=== PATIENT | female | born 1995 | race Caucasian/White ===

== ENCOUNTER 2022-05-12 09:49 | Outpatient (CLI) | payer MEDICAID ==
[2022-05-12 10:02] VITALS: BP 115/66
--- NOTE | 2022-05-12 11:18 | PROVIDER PROGRESS NOTE ---
- HPI Chief Complaint: Labor Check Current : Vital Signs Temperature 98.8 F 05/12/22 10:01 Heart Rate 85 05/12/22 10:01 Respiratory Rate 16 05/12/22 10:01 Blood Pressure 115/66 05/12/22 10:01 Temperature 98.8 F 05/12/22 10:18 Heart Rate 85 05/12/22 10:01 Respiratory Rate 16 05/12/22 10:01 Blood Pressure 115/66 05/12/22 10:01 O2 Saturation - Exam Patient is a 26-year-old -0-3-1 at 19 weeks 6 days gestation by early ultrasound. She just flew back from [place] and [place] to [place]. She has not established care. She does have some abdominal pain that felt like a "rubber band snapped" with midline and right lower quadrant sharp pain. She says this is a line in the inguinal distribution. She says she has no frequent burning with urination, but occasionally wakes up at night with a burning sensation. Is having some vaginal discharge. Was recently treated for mycoplasma. Also has had several days of decreased movement. Past medical history PTSD Past surgical history No prior abdominal surgeries. Family history Noncontributory Social history Denies tobacco, alcohol, drugs Physical Exam Constitutional: alert, no acute distress, well hydrated, well developed, well nourished, appropriate dress. Skin: normal turgor, normal color. Head: atraumatic, normocephalic. Cardiovascular: RRR. Respiratory: no respiratory distress. Abdomen: nondistended, nontender. Spine: normal mobility. Neurologic: normal, sensation intact, motor intact. Psych: affect and mood appropriate, normal interaction, good eye contact. Vulva: Normal in appearance, no lesions or masses. Urethra: no masses, non-tender, no discharge. Bladder: No masses, non-tender, non-distended. Vagina: Rugated, physiologic discharge, no lesions, no masses, adequate pelvic support. Cervix: No motion tenderness, no lesions. Uterus: Mobile, non-tender, adequate support. Adnexa: No masses, mobile, nontender. 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 Assessment and plan 26-year-old -0-3-1 gestation at 19 weeks 6 days gestation by early ultrasound presenting with abdominal cramping and decreased movement. 1. 19 weeks gestation -We will establish with [facility] for visits. We will try to get records from previous provider. 2. Decreased movement -Educated on expectations of movement at this point in . heart tones normal today 3. Bacterial vaginosis -Positive on application today. We will treat with metronidazole. Prescription sent to pharmacy for patient. -GC/CT Negative 4. Yeast vaginitis -Will treat with OTC Monistat 5. Dysuria -UA unremarkable
[2022-05-12 11:19] LABS: BILIRUBIN,URINE NEGATIVE (NEGATIVE); GLUCOSE, URINE (UA) NEGATIVE (NEGATIVE); KETONES,URINE (UA) NEGATIVE (NEGATIVE); LEUKOCYTE ESTERASE, URINE NEGATIVE (NEGATIVE); NITRITE,URINE NEGATIVE (NEGATIVE); OCCULT BLOOD,URINE NEGATIVE (NEGATIVE); PROTEIN,URINE NEGATIVE (NEGATIVE); UROBILINOGEN,URINE 0.2 (NORMAL) E.U./dL (NORMAL)
[2022-05-12 11:23] LABS: CLARITY,URINE CLEAR (CLEAR)
[2022-05-12 11:48] LABS: BACTERIA,URINE Few /HPF (None Seen); RBC,URINE 0-5 /HPF (0-5); SQUAMOUS EPITHELIAL CELL,UR RARE Squamous (<= Few); WBC,URINE 0-3 /HPF (0-5)
[2022-05-12 15:19] LABS: BACTERIAL VAGINOSIS DNA POSITIVE (NEGATIVE); CANDIDA GLABRATA DNA NEGATIVE (NEGATIVE); CANDIDA GROUP DNA POSITIVE (NEGATIVE); CANDIDA KRUSEI DNA NEGATIVE (NEGATIVE); TRICHOMONAS VAGINALIS DNA NEGATIVE (NEGATIVE)
[2022-05-13 00:29] LABS: CHLAMYDIA TRACHOMATIS DNA NEGATIVE (NEGATIVE); NEISSERIA GONORRHOEAE DNA NEGATIVE (NEGATIVE)
== END 2022-05-12 10:55 | disposition home or self-care (01) ==
LOC: WFO 09:49 → FBP 10:02 → WFO 10:55
PROVIDERS: ATTEND Obstetrics & Gynecology
DX: O36.8120 Decreased fetal movements, second trimester, not applicable or unspecified (principal); O23.592 Infection of other part of genital tract in pregnancy, second trimester; N76.0 Acute vaginitis; O98.812 Other maternal infectious and parasitic diseases complicating pregnancy, second trimester; B37.3 Candidiasis of vulva and vagina; O99.891 Other specified diseases and conditions complicating pregnancy; R10.31 Right lower quadrant pain; R30.0 Dysuria; Z3A.19 19 weeks gestation of pregnancy
CPT/HCPCS: 81001; 81514; 87086; 87491; 87591; 87661; 99212; 99213

== ENCOUNTER 2022-05-26 06:46 | Outpatient (CLI) | payer MEDICAID ==
--- NOTE | 2022-05-26 10:37 | Ultrasound Report ---
PROCEDURE: OB Detailed Eval INDICATIONS: SUPERVISION OF OUTSIDE/PRIOR DATING DATA: Last menstrual period (LMP): Unknown. First dating scan (date and location): 03/17/2022. Outside imaging, images are not available Estimated date of delivery (RACIEL) from first dating scan: September 30, 2022 TECHNIQUE: Real-time scanning was performed of the fetus, with image documentation and biometric measurements. COMPARISON: None. FINDINGS: General: A single living intrauterine gestation is present. Presentation: Variable Placenta: Placental position is posterior fundal, without previa. Amniotic fluid index: 12.2 cm, normal for gestational age. heart rate: 145 beats per minute. Maternal cervical canal: 4.2 cm long; normal length is 2.5 cm or more. biometrics: Biparietal diameter: 4.9 cm Head circumference: 18.2 cm Abdominal circumference: 16.9 cm Femur length: 3.6 cm Estimated gestational age from initial scan: 21 weeks and 6 days Composite gestational age from present scan: 21 weeks and 2 days Estimated weight and percentile: 435 g, at the 30th percentile Maternal adnexal structures within normal limits. Anatomic survey: Neuro: Ventricles are normal at less than 10 mm. Cisterna magna is normal at 3-11 mm. Cerebellum i s normal in size and morphology. Nuchal skin fold: Normal at less than 6 mm between 14 and 20 weeks gestational age. Face: Nose and lips, facial profile are normal. Spine: No evidence for spina bifida. Heart: 4-chambered heart is present, with normal ventricular outflow tracts. Diaphragm: Diaphragm is intact. Stomach: Left-sided stomach is present. Kidneys: No hydronephrosis. Normal is less than 5 mm in 2nd trimester, less than 7 mm in 3rd trimester. Cord: 3 vessel cord has orthotopic insertion. Bladder: Normal in size. Extremities: All 4 extremities are visualized. IMPRESSION: Intrauterine gestation with outside reported gestational age of 21 weeks and 6 days based on ultrasou nd, for which images are not available for review. Today's biometry measurement is 20 weeks and 2 days, which is concordant. EFW is at the 30th percentile. Routine anatomic survey is normal and complete. Reviewed by: Shan Mcdaniel MD on 05/26/2022 10:36 AM PDT Approved by: Shan Mcdaniel MD on 05/26/2022 10:36 AM PDT Station ID: [id number]
== END 2022-05-26 06:47 | disposition home or self-care (01) ==
LOC: DI 06:46
PROVIDERS: ATTEND Nurse Practitioner
DX: Z34.82 Encounter for supervision of other normal pregnancy, second trimester (principal); Z36.89 Encounter for other specified antenatal screening

== ENCOUNTER 2022-07-04 09:06 | Outpatient (CLI) | payer MEDICAID ==
[2022-07-04 09:50] LABS: GTT GLUCOSE,FASTING 93 mg/dL (70-100)
== END 2022-07-04 09:07 | disposition home or self-care (01) ==
LOC: LAB 09:06
PROVIDERS: ATTEND Obstetrics & Gynecology
DX: O99.810 Abnormal glucose complicating pregnancy (principal)
CPT/HCPCS: 36415; 82951; 82952

== ENCOUNTER 2022-08-05 07:02 | Outpatient (CLI) | payer MEDICAID ==
--- NOTE | 2022-08-05 15:47 | Ultrasound Report ---
PROCEDURE: OB F/U or Repeat INDICATIONS: SUPERVISION OF OUTSIDE/PRIOR DATING DATA: Last menstrual period (LMP): Unknown. LMP-based estimated date of delivery (RACIEL): Unknown. First dating scan (date and location): 03/17/2022. Estimated date of delivery (RACIEL) from first dating scan: 09/30/22. The below data below was generated using the ultrasound RACIEL of 09/30/22 TECHNIQUE: Real-time scanning was performed of the fetus, with image documentation and biometric measurements. COMPARISON: OB ultrasound 06/13/2022 FINDINGS: General: A single living intrauterine gestation is present. Presentation: Vertex Placenta: Placental position is posterior, without previa. Amniotic fluid index: 18.7 cm, within normal limits for gestational age. Largest pocket measures 6. 2 cm heart rate: 132 beats per minute. Maternal cervical canal: 0.6 cm long; normal length is 2.5 cm or more. biometrics: Biparietal diameter: 8.1 cm 32 weeks 3 Head circumference: 29.4 cm 32 weeks 3 days Abdominal circumference: 20.3 cm 32 weeks 3 days Femur length: 6.4 cm 33 weeks 0 days Estimated gestational age from initial scan: 32 weeks 0 days Composite gestational age from present scan: 32 weeks 4 days Estimated weight and percentile: 2004 g, 58th percentile Measurement variability in biometric dating: +/- 10 days from 12-20 weeks gestation, +/- 2 weeks from 20-30 weeks gestation, +/- 3 weeks at 30 weeks gestation or more. Other: Persistent right ovarian cyst although decreased in size. IMPRESSION: Single live intrauterine with ultrasound gestational age today of 32 weeks 4 days. NEERU is within normal limits. Appropriate interval growth is noted. Reviewed by: Meg Penn MD on 08/05/2022 3:46 PM PDT Approved by: Meg Penn MD on 08/05/2022 3:46 PM PDT Station ID: [id number]
== END 2022-08-05 07:03 | disposition home or self-care (01) ==
LOC: DI 07:02
PROVIDERS: ATTEND Obstetrics & Gynecology
DX: O09.893 Supervision of other high risk pregnancies, third trimester (principal); Z3A.32 32 weeks gestation of pregnancy; Z79.899 Other long term (current) drug therapy

== ENCOUNTER 2022-08-22 12:36 | Emergency (ER) | payer MEDICAID ==
--- NOTE | 2022-08-22 13:12 | ED Physician Documentation ---
PD HPI CHEST PAIN - Stated complaint Stated Complaint: CHEST PX - Chief complaint Chief Complaint: Cardiac - History obtained from History obtained from: Patient - Additional information Additional information: at 34 weeks gestation. Has hx of tachycardias no propranolol for same. Today at 1115am was standing and got presyncopal with chest pressure and dyspnea. She noted her heart rate to be higher than usual at 172, but she says that this is not the highest its been with her tachycardias which have been incompletely worked up. She had taken her heart rate with her apple watch. She has not had an echo or a Holter monitor. She denies pedal edema or calf pain. Review of Systems Ten Systems: 10 systems reviewed and negative Constitutional: reports: Fatigue Cardiac: reports: Chest pain / pressure Respiratory: reports: Dyspnea PD PAST MEDICAL HISTORY - Past Medical History Cardiovascular: None Respiratory: None Endocrine/Autoimmune: None GI: None - Past Surgical History Past Surgical History: No - Present Medications Home Medications: Ambulatory Orders Medication Instructions Recorded Confirmed metroNIDAZOLE [Flagyl] 500 mg PO BID 7 Days #14 tablet 05/13/22 08/22/22 Propranolol [Inderal] 10 mg PO BID 08/22/22 08/22/22 Sertraline HCl 100 mg PO DAILY 08/22/22 08/22/22 - Allergies Allergies/Adverse Reactions: Allergies Allergy/AdvReac Type Severity Reaction Status Date / Time melon Allergy Severe Anaphylaxis Verified 06/14/22 07:11 pineapple Allergy Severe Unknown Verified 06/14/22 07:09 - Social History Does the pt smoke?: No Smoking Status: Never smoker Does the pt drink ETOH?: No Does the pt have substance abuse?: No - Immunizations Immunizations are current?: Yes - POLST Patient has POLST: No PD ED PE NORMAL - Vitals Vital signs reviewed: Yes (Mild resting tachycardia) - General General: Alert and oriented X 3, No acute distress - HEENT HEENT: PERRL, EOMI - Neck Neck: Supple, no meningeal sign, No bony TTP - Cardiac Cardiac: Other (mild tachy, reg, no murmur) - Respiratory Respiratory: No respiratory distress, Clear bilaterally - Abdomen Abdomen: Normal bowel sounds, Soft, Other (gravid) - Back Back: No CVA TTP, No spinal TTP - Derm Derm: Normal color, Warm and dry - Extremities Extremities: No edema, No calf tenderness / cord - Neuro Neuro: Alert and oriented X 3, Normal speech Results - Vitals Vitals: Vital Signs - 24 hr 08/22/22 12:47 Temperature 37.2 C Heart Rate 120 H Respiratory 18 Rate Blood Pressure 118/74 O2 Saturation 100 Oxygen O2 Source Room air - EKG (time done) 1246 Rate: Rate (enter#) (113) Rhythm: Sinus tachycardia [place]: Normal Intervals: Normal [place] QRS: Normal Ischemia: Normal ST segments - Labs Labs: Laboratory Tests 08/22/22 08/22/22 08/22/22 13:16 13:16 13:16 WBC 9.6 RBC 3.82 L Hgb 10.4 L Hct 32.6 L MCV 85.3 MCH 27.2 MCHC 31.9 L RDW 13.2 Plt Count 262 MPV 8.2 Neut # (Auto) 7.1 H Lymph # (Auto) 1.7 [place] # (Auto) 0.6 Eos # (Auto) 0.1 Baso # (Auto) 0.0 Absolute Nucleated RBC 0.00 Nucleated RBC % 0.0 D-Dimer Sodium 136 Potassium 3.8 Chloride 106 Carbon Dioxide 21 Anion Gap 9.0 BUN 9 Creatinine 0.5 Estimated GFR (MDRD) 149 Glucose 94 Calcium 9.0 Total Bilirubin 0.4 AST 19 ALT 16 Alkaline Phosphatase 100 Troponin I High Sens 6.0 Total Protein 6.2 L Albumin 3.0 L Globulin 3.2 Albumin/Globulin Ratio 0.9 L Lipase 31 08/22/22 13:16 WBC RBC Hgb Hct MCV MCH MCHC RDW Plt Count MPV Neut # (Auto) Lymph # (Auto) [place] # (Auto) Eos # (Auto) Baso # (Auto) Absolute Nucleated RBC Nucleated RBC % D-Dimer 278.7 H Sodium Potassium Chloride Carbon Dioxide Anion Gap BUN Creatinine Estimated GFR (MDRD) Glucose Calcium Total Bilirubin AST ALT Alkaline Phosphatase Troponin I High Sens Total Protein Albumin Globulin Albumin/Globulin Ratio Lipase PD MEDICAL DECISION MAKING - ED course ED course: 27-year-old G6, P1 at 34 weeks gestation presents for presyncope associated with tachycardia and chest pressure and shortness of breath. She has had a longstanding history of tachycardias that are treated in this with propranolol, but she feels like this issue predated this . She was very tachycardic per her apple watch today but that is in range with her usual tachycardias. That said her tachycardia is profound and severe. I wanted to do an echo, noting that this would be a decent screening test for pulmonary embolism but would also evaluate her heart, unfortunately echo was not available today and after discussion of potential downstream testing patient is agreeable to D-dimer screening. Her quantitative D-dimer does flag is elevated, that said it is minimally elevated and given that she is third trimester and 40s generally feel that the reference range for D-dimer is elevated with progression in with normal values from a variety of sources being well above the thousand in the third trimester, therefore I feel that the D-dimer of 278 effectively rules out thromboembolic disease given her third trimester status. I discussed the case by phone with Dr. Anton on-call for [facility] who agrees with work-up and management. Departure - Departure Disposition: 01 Home, Self Care Clinical Impression: Qualifiers: Weeks of gestation: 34 weeks Qualified Code(s): Z3A.34 - 34 weeks gestation of Chest pain Qualifiers: Chest pain type: chest pain on breathing Qualified Code(s): R07.1 - Chest pain on breathing; R07.81 - Pleurodynia Condition: Good Record reviewed to determine appropriate education?: Yes Instructions: ED Chest Pain NonCardiac Comments: Work-up here was relatively normal with no sign of active heart disease. Your D-dimer was normal for your status of . This rules out blood clots. Return for new or worsening symptoms. Follow-up with Dr. Dickey, preferably tomorrow for consideration of echocardiogram and accelerating the iron molder helper.
[2022-08-22 13:26] LABS: BASOPHILS % (AUTO) 0.4 %; EOSINOPHILS # (AUTO) 0.1 10^3/uL (0.0-0.7); EOSINOPHILS % (AUTO) 0.9 %; HCT - HEMATOCRIT 32.6 % (37.0-47.0); HGB - HEMOGLOBIN 10.4 g/dL (12.0-16.0); LYMPHOCYTES # (AUTO) 1.7 10^3/uL (1.5-3.5); LYMPHOCYTES % (AUTO) 17.5 %; MEAN CORPUSCULAR HEMOGLOBIN 27.2 pg (27.0-31.0); MEAN CORPUSCULAR HGB CONC 31.9 g/dL (32.0-36.0); MEAN CORPUSCULAR VOLUME 85.3 fL (81.0-99.0); MEAN PLATELET VOLUME 8.2 fL (7.9-10.8); MONOCYTES # (AUTO) 0.6 10^3/uL (0.0-1.0); MONOCYTES % (AUTO) 6.1 %; NEUTROPHILS # (AUTO) 7.1 10^3/uL (1.5-6.6); NEUTROPHILS % (AUTO) 73.2 %; PLT - PLATELET COUNT 262 10^3/uL (130-450); RED BLOOD COUNT 3.82 10^6/uL (4.20-5.40); RED CELL DISTRIBUTION WIDTH 13.2 % (12.0-15.0); WHITE BLOOD COUNT 9.6 x10^3/uL (4.8-10.8)
[2022-08-22 13:39] LABS: ALBUMIN/GLOBULIN RATIO 0.9 (1.0-2.2); BILIRUBIN,TOTAL 0.4 mg/dL (0.2-1.0); CREATININE 0.5 mg/dL (0.4-1.0); POTASSIUM 3.8 mmol/L (3.5-5.0); TOTAL PROTEIN 6.2 g/dL (6.7-8.2)
[2022-08-22 14:44] VITALS: BP 115/74
--- NOTE | 2022-08-22 18:09 | PROCEDURE REPORT ---
- HPI Diagnosis/Indication for NST: Other Vital Signs Temperature 98.9 F 08/22/22 12:47 Heart Rate 120 H 08/22/22 12:47 Respiratory Rate 18 08/22/22 12:47 Blood Pressure 118/74 08/22/22 12:47 O2 Saturation 100 08/22/22 12:47 Temperature 98.9 F 08/22/22 12:47 Heart Rate 115 H 08/22/22 14:30 Respiratory Rate 19 08/22/22 14:30 Blood Pressure 115/74 08/22/22 14:30 O2 Saturation 100 08/22/22 14:30 If not protocol: Oxygen Flow, liters/minute - NST Procedure EFM: 140s, moderate variability, no decelerations, positive accelerations [place]: occasional contractions Category 1, reactive NST - Results and Plan Findings/Impression: 27yo at 34 weeks evaluated in ED for chest pain. care at . Tachycardia treated with propanolol. - NST performed to evaluate well being - NST reactive - Follow up with patient this week, plan to schedule echo
== END 2022-08-22 14:44 | disposition home or self-care (01) ==
LOC: ED 12:36
DX: O26.893 Other specified pregnancy related conditions, third trimester (principal); R07.9 Chest pain, unspecified; Z3A.34 34 weeks gestation of pregnancy
CPT/HCPCS: 36415; 80053; 83690; 84484; 85025; 85379; 93005; 99283; 99284

== ENCOUNTER 2022-08-24 14:54 | Outpatient (CLI) | payer MEDICAID ==
[2022-08-24 15:47] LABS: THYROID STIMULATING HORMONE 0.69 uIU/mL (0.34-5.60)
== END 2022-08-24 14:55 | disposition home or self-care (01) ==
LOC: LAB 14:54
PROVIDERS: ATTEND Obstetrics & Gynecology
DX: O09.93 Supervision of high risk pregnancy, unspecified, third trimester (principal); O99.891 Other specified diseases and conditions complicating pregnancy; R00.0 Tachycardia, unspecified
CPT/HCPCS: 36415; 84443; 86787

== ENCOUNTER 2022-09-08 08:00 | Outpatient (CLI) | payer MEDICAID ==
[2022-09-08 22:38] LABS: BACTERIAL VAGINOSIS DNA NEGATIVE (NEGATIVE); CANDIDA GLABRATA DNA NEGATIVE (NEGATIVE); CANDIDA GROUP DNA POSITIVE (NEGATIVE); CANDIDA KRUSEI DNA NEGATIVE (NEGATIVE); TRICHOMONAS VAGINALIS DNA NEGATIVE (NEGATIVE)
[2022-09-08 23:46] LABS: CHLAMYDIA TRACHOMATIS DNA NEGATIVE (NEGATIVE); NEISSERIA GONORRHOEAE DNA NEGATIVE (NEGATIVE)
== END 2022-09-08 23:59 | disposition home or self-care (01) ==
LOC: LAB.WC 08:00
PROVIDERS: ATTEND Nurse Practitioner
DX: O99.891 Other specified diseases and conditions complicating pregnancy (principal); N89.8 Other specified noninflammatory disorders of vagina; Z36.85 Encounter for antenatal screening for Streptococcus B
CPT/HCPCS: 81514; 87491; 87591; 87661; 87797

== ENCOUNTER 2022-09-08 13:39 | Outpatient (CLI) | payer MEDICAID ==
[2022-09-08 13:54] VITALS: BP 117/84
[2022-09-08 14:35] LABS: RUPTURE OF MEMBRANES PLUS NEGATIVE (NEGATIVE)
--- NOTE | 2022-09-08 14:37 | PROCEDURE REPORT ---
- HPI Diagnosis/Indication for NST: Other (false labor) Current EDU 09/30/22 Gestation 36 Weeks and 6 Days 5 Para 1 Vital Signs Temperature 98.2 F 09/08/22 13:48 Heart Rate 88 09/08/22 13:48 Respiratory Rate 16 09/08/22 13:48 Blood Pressure 117/84 H 09/08/22 13:48 Temperature 98.2 F 09/08/22 13:48 Heart Rate 88 09/08/22 13:48 Respiratory Rate 16 09/08/22 13:48 Blood Pressure 117/84 H 09/08/22 13:48 O2 Saturation If not protocol: Oxygen Flow, liters/minute - NST Procedure NST Procedure Start Date 09/08/22 Start Time 13:46 Stop Time 14:15 Vibroacoustic Stimulation Used No Patient States Movement No: decreased Baseline: 140 Beat to beat varability: Moderate No deceleration Present acceleration Interpretation: Reactive Plan: No changes Nitrogen test is negative AmniSure: negative Follow-up at the office next week - Results and Plan Findings/Impression: reactive NST Plan: Follow up 1 week
--- NOTE | 2022-09-08 14:40 | PROVIDER PROGRESS NOTE ---
Subjective - Prog Note Date Prog Note Date: 09/08/22 Prog Note Time: 14:38 - Subjective Subjective: Nonstress test was reactive. She was a sent from the office because her cervix was 3 cm dilated and there was a questionable ruptured membrane. AmniSure was negative nitrazine test was negative and monitoring did not show any contractions and she was reassured and she is going to be sent home today and she will be followed at the office next week and she understood Objective - Vital Signs/Intake & Output Vital Signs: Vital Signs x48h Temp Pulse Resp BP 09/08/22 13:48 98.2 F 88 16 117/84 H - Lab Results Other Labs: Lab Results x24hrs 09/08/22 Range/Units 13:55 Membranes Rupture NEGATIVE (NEGATIVE)
--- NOTE | 2022-09-08 17:55 | PROVIDER PROGRESS NOTE ---
Subjective - Prog Note Date Prog Note Date: 09/08/22 Prog Note Time: 17:54 - Subjective Pt reports feeling: Improved (Afebrile, Cx: 10100/+1 vtx P: will let her to push) Objective - Vital Signs/Intake & Output Vital Signs: Vital Signs x48h Temp Pulse Resp BP 09/08/22 13:48 98.2 F 88 16 117/84 H - Lab Results Other Labs: Lab Results x24hrs 09/08/22 Range/Units 13:55 Membranes Rupture NEGATIVE (NEGATIVE)
== END 2022-09-08 14:45 | disposition home or self-care (01) ==
LOC: WFO 13:39 → FBP 13:40 → WFO 14:45
PROVIDERS: ATTEND Obstetrics & Gynecology
DX: O47.1 False labor at or after 37 completed weeks of gestation (principal); Z3A.36 36 weeks gestation of pregnancy; O99.891 Other specified diseases and conditions complicating pregnancy; N89.8 Other specified noninflammatory disorders of vagina; Z36.85 Encounter for antenatal screening for Streptococcus B
CPT/HCPCS: 59025; 81514; 84112; 87491; 87591; 87661; 87797; 99213

== ENCOUNTER 2022-09-09 12:46 | Outpatient (CLI) | payer MEDICAID | END 2022-09-09 12:47 | disposition home or self-care (01) | LOC: MAC.MOP 12:46 | PROVIDERS: ATTEND Obstetrics & Gynecology | DX: O09.93 Supervision of high risk pregnancy, unspecified, third trimester (principal); R00.0 Tachycardia, unspecified | CPT/HCPCS: 93242 ==

== ENCOUNTER 2022-09-26 07:03 | Inpatient (IN) | payer MEDICAID ==
[2022-09-26] MEDS ORDERED: CARBOPROST TROMETHAMINE 250 MCG/ML AMP IM PRN (08:36)
[2022-09-26] MEDS ORDERED: TRANEXAMIC ACID IN NACL 1,000 MG/100 ML BAG IV PRN (08:36)
[2022-09-26] MEDS ORDERED: lidocaine 1% 20 ML MDV ID PRN (08:36)
[2022-09-26] MEDS ORDERED: miSOPROStoL 200 MCG TABLET PR PRN (08:36)
[2022-09-26] MEDS ORDERED: OXYTOCIN 10 UNIT/ML VIAL IM PRN (08:36)
[2022-09-26] MEDS ORDERED: SODIUM CHLORIDE FLUSH 0.9% 10 ML SYRINGE IVP PRN (08:36)
[2022-09-26] MEDS ORDERED: fentaNYL 100 MCG/2 ML VIAL IVP PRN (08:36)
[2022-09-26] MEDS ORDERED: TERBUTALINE 1 MG/ML VIAL SUBQ PRN (08:36)
[2022-09-26] MEDS ORDERED: METHYLERGONOVINE 0.2 MG/ML VIAL IM PRN (08:36)
[2022-09-26] MEDS ORDERED: miSOPROStoL 200 MCG TABLET BC PRN (08:36)
[2022-09-26] MEDS ORDERED: OXYTOCIN/SODIUM CHLORIDE 500 ML IV PRN (08:36)
[2022-09-26 08:53] LABS: BASOPHILS % (AUTO) 0.4 %; EOSINOPHILS # (AUTO) 0.1 10^3/uL (0.0-0.7); EOSINOPHILS % (AUTO) 1.1 %; HGB - HEMOGLOBIN 9.7 g/dL (12.0-16.0); LYMPHOCYTES # (AUTO) 1.8 10^3/uL (1.5-3.5); LYMPHOCYTES % (AUTO) 23.2 %; MEAN CORPUSCULAR HEMOGLOBIN 24.7 pg (27.0-31.0); MEAN CORPUSCULAR HGB CONC 31.3 g/dL (32.0-36.0); MEAN CORPUSCULAR VOLUME 79.1 fL (81.0-99.0); MEAN PLATELET VOLUME 8.9 fL (7.9-10.8); MONOCYTES # (AUTO) 0.5 10^3/uL (0.0-1.0); MONOCYTES % (AUTO) 6.9 %; NEUTROPHILS # (AUTO) 5.2 10^3/uL (1.5-6.6); NEUTROPHILS % (AUTO) 66.4 %; PLT - PLATELET COUNT 293 10^3/uL (130-450); RED BLOOD COUNT 3.92 10^6/uL (4.20-5.40); RED CELL DISTRIBUTION WIDTH 14.7 % (12.0-15.0); WHITE BLOOD COUNT 7.8 x10^3/uL (4.8-10.8)
[2022-09-26] MEDS ORDERED: SODIUM CHLORIDE FLUSH 0.9% 10 ML SYRINGE IVP SCH (09:00)
[2022-09-26] MEDS ORDERED: LACTATED RINGERS 1,000 ML ONE (09:00)
[2022-09-26] MEDS ORDERED: OXYTOCIN/SODIUM CHLORIDE 500 ML IV SCH (09:00)
[2022-09-26] MEDS: LACTATED RINGERS 1,000 ML IV SCH ×2 (09:03→14:31)
--- NOTE | 2022-09-26 09:05 | HISTORY & PHYSICAL EXAMINATION ---
Admit History - Visit Reason Visit Reason: Other (Scheduled IOL, GDMA1) - : 5 Parity: 1 : 3 SAb Care: positive: [facility] Complications This : positive: Treated for GBS/UTI, Gestational diabetes Smoking Status: Never smoker - Mother's Labs Mother's Blood Type: positive: A Mother's RH: positive: Positive GBS: positive: Group B Step Negative Rubella Status: positive: Immune - Other Maternal History Other Maternal History: Med: Anxiety/Depression, Tachycardia Surg: Rhinoplasty 2020 Social: Single, father of baby in room with patient, denies DORY Fam: Asthma, DM Meds/Allgy - Home Medications Home Medications: Ambulatory Orders Medication Instructions Recorded Confirmed Propranolol [Inderal] 10 mg PO BID 08/22/22 09/09/22 Sertraline HCl 100 mg PO DAILY 08/22/22 09/09/22 - Allergies Allergies/Adverse Reactions: Allergies Allergy/AdvReac Type Severity Reaction Status Date / Time melon Allergy Severe Anaphylaxis Verified 09/09/22 14:05 pineapple Allergy Severe Unknown Verified 09/09/22 14:05 Review of Systems - All Other Systems All Other Systems: reports: Reviewed and negative Physical - Abdominal Exam Vital Signs: Temp Pulse Resp BP Pulse Ox O2 Flow Rate 98.1 F 09/26/22 08:18 Contraction Frequency (min/apart): 0 Contraction Intensity: positive: Mild Uterine Resting Tone: positive: Soft - Monitoring Heart Rate Baseline: 140 Strip Review: positive: Category I - Presentation Presentation: positive: Vertex (placenta posterior EFW 3200g) - Vaginal Exam Membranes: positive: Membranes intact Dilation (in cm): 3 - Speculum Exam Speculum Exam Performed: positive: No Plan for Labor - Plan For Labor I expect patient to be DC'd or transferred within 96 hours.: Yes Plan for Labor: 27yo at 39.3w by 13w US presenting for GDMA1 - Admit - CBC, T&S - SW consult placed for social situation - Start Pitocin, anticipate - Cat 1, continue to monitor
[2022-09-26] MEDS: SERTRALINE 50 MG TABLET PO SCH (11:59)
[2022-09-26] MEDS ORDERED: ROPIVACAINE 0.2% 200 MG/100 ML BAG EP ONE (13:43)
[2022-09-26] MEDS ORDERED: NALBUPHINE 10 MG/ML AMP IVP PRN (14:33)
[2022-09-26] MEDS ORDERED: diphenhydrAMINE INJ 50 MG/ML VIAL IVP PRN (14:33)
[2022-09-26] MEDS ORDERED: ONDANSETRON 4 MG/2 ML VIAL IVP PRN (14:33)
[2022-09-26] MEDS ORDERED: ePHEDrine 50 MG/ML VIAL IVP PRN (14:33)
[2022-09-26] MEDS ORDERED: NALOXONE 0.4 MG/ML VIAL IVP PRN (14:33)
[2022-09-26] MEDS ORDERED: ROPIVACAINE 0.2% 200 MG/100 ML BAG EP PRN (14:33)
--- NOTE | 2022-09-26 14:36 | ANESTHESIA ---
Pre-Anesthesia VS, & Labs - Diagnosis labor pain - Procedure labor epidural Vital Signs: Temp Pulse Resp BP Pulse Ox O2 Flow Rate 36.7 C 09/26/22 08:18 Height: 5 ft 5 in Weight (kg): 69.581 kg Body Mass Index: 25.5 BMI Classification: Overweight - NPO Other (ate lunch) - Is Patient ?: Yes - Lab Results Current Lab Results: Laboratory Tests 09/26/22 09:28: Blood Type Recheck A POSITIVE 09/26/22 07:30: WBC 7.8, RBC 3.92 L, Hgb 9.7 L, Hct 31.0 L, MCV 79.1 L, MCH 24.7 L, MCHC 31.3 L, RDW 14.7, Plt Count 293, MPV 8.9, Neut # (Auto) 5.2, Lymph # (Auto) 1.8, [place] # (Auto) 0.5, Eos # (Auto) 0.1, Baso # (Auto) 0.0, Absolute Nucleated RBC 0.00, Nucleated RBC % 0.0 09/26/22 07:30: Blood Type A POSITIVE, Antibody Screen NEGATIVE Fish Bones: 09/26/22 07:30 Home Medications and Allergies Active Medications Carboprost Tromethamine (Carboprost Tromethamine 250 Mcg/Ml Amp) 250 mcg IM .ONCE PRN PRN Reason: Hemorrhage Fentanyl (Fentanyl 100 Mcg/2 Ml Vial) 50 mcg IVP Q1H PRN PRN Reason: Severe Pain (score 7-10) Oxytocin/Sodium Chloride (Pitocin/Sodium Chloride) 500 mls @ 999 mls/hr IV PRN PRN; Protocol PRN Reason: POST- HEMORR PREVENTION Tranexamic Acid (Tranexamic 1,000 Mg/100ml-Nacl) 1,000 mg in 100 mls @ 600 mls/hr IV Q30M PRN PRN Reason: EBL >1200mL and within 3hr Oxytocin/Sodium Chloride (Pitocin/Sodium Chloride) 500 mls @ 1 mls/hr IV TITR IVORY; Protocol Last Admin: 09/26/22 09:04 Dose: 2 milliunit/min, 2 mls/hr Lactated Ringer's (Lr) 1,000 mls @ 125 mls/hr IV .Q8H IVORY Last Admin: 09/26/22 09:03 Dose: 125 mls/hr Lidocaine HCl (Lidocaine 1% 20 Ml Mdv) 20 ml ID .ONCE PRN PRN Reason: PERINEAL REPAIR Stop: 09/29/22 08:36 Methylergonovine Maleate (Methylergonovine 0.2 Mg/Ml Vial) 0.2 mg IM .ONCE PRN PRN Reason: Hemorrhage Misoprostol (Misoprostol 200 Mcg Tablet) 600 mcg BC .ONCE PRN PRN Reason: Hemorrhage Misoprostol (Misoprostol 200 Mcg Tablet) 800 mcg WA .ONCE PRN PRN Reason: Hemorrhage Oxytocin (Oxytocin 10 Unit/Ml Vial) 10 unit IM .ONCE PRN PRN Reason: Step One if no IV access. Sertraline HCl (Sertraline 50 Mg Tablet) 50 mg PO DAILY IVORY Last Admin: 09/26/22 11:59 Dose: 50 mg Sodium Chloride (Sodium Chloride Flush 0.9% 10 Ml Syringe) 10 ml IVP PRN PRN PRN Reason: NEEDED PER PROVIDER ORDERS Last Admin: 09/26/22 07:30 Dose: 10 ml Sodium Chloride (Sodium Chloride Flush 0.9% 10 Ml Syringe) 10 ml IVP Q8H IVORY Terbutaline Sulfate (Terbutaline 1 Mg/Ml Vial) 0.25 mg SUBQ .ONCE PRN PRN Reason: Tachystole Propranolol [Inderal] 10 mg PO BID 08/22/22 Sertraline HCl 100 mg PO DAILY 08/22/22 Allergies/Adverse Reactions: Allergies Allergy/AdvReac Type Severity Reaction Status Date / Time melon Allergy Severe Anaphylaxis Verified 09/09/22 14:05 pineapple Allergy Severe Unknown Verified 09/09/22 14:05 Anes History & Medical History - Anesthetic History Anesthesia Complications: reports: No previous complications Family history of Anesthesia Complications: Denies Family history of Malignant Hyperthermia: Denies - Medical History Cardiovascular: reports: None, Other (intermittent tachycardia) Pulmonary: reports: None Gastrointestinal: reports: None Endocrine/Autoimmune: reports: None Smoking Status: Never smoker - Obstetrical History : 5 Parity: 1 Complications: reports: Treated for GBS/UTI, Gestational diabetes Exam General: Alert, Oriented x3, Cooperative Dental: WNL Mouth Openin Fingerbreadth Neck Mobility: Normal Mallampati classification: I Respiratory: Lungs clear Cardiovascular: Regular rate Plan Anesthesia Type: Epidural Consent for Procedure(s) Verified and Reviewed: Yes Code Status: Attempt Resuscitation ASA classification: 2-Mild systemic disease Is this case an emergency?: No
--- NOTE | 2022-09-26 14:54 | PROVIDER PROGRESS NOTE ---
Labor Progress Note - Uterine Monitoring Contraction Frequency (min/apart): 2 Contraction Intensity: positive: Mild to moderate Uterine Resting Tone: positive: Soft - Monitoring Monitor Mode: positive: External ultrasound Heart Rate Baseline: 140 Heart Rate Variability: positive: Moderate (6-25 bmp) Accelerations: positive: Present, 15x15 Decelerations: positive: None Strip Review: positive: Category I - Vaginal Exam Dilation (in cm): 6 Effacement (%): 100 Station: -2 (AROM 1430, copious clear fluid) Cervical Position: Midposition - Labor Progress Note Labor Progress Note/Additional Text: 27yo at 39.3 by 13w US admitted for scheduled IOL for GDMA1 - AROM 1430, clear - Continue Pitocin - Anticipate
[2022-09-26] MEDS ORDERED: PROPRANOLOL 10 MG TABLET PO SCH (17:00)
[2022-09-26] MEDS ORDERED: HYDROCORTISONE 1% CREAM 28 GM TUBE PR PRN (19:00)
[2022-09-26] MEDS ORDERED: WITCH HAZEL/GLYCERIN 1 PAD TOP PRN (19:00)
--- NOTE | 2022-09-26 19:15 | DELIVERY NOTE ---
Delivery Note - Labor Labor: positive: Augmented by oxytocin, Induced by oxytocin - Presentation Presentation: positive: Vertex, NEO - left occiput anterior - Nuchal Cord Nuchal Cord: positive: None - Anesthetic Anesthetic Type: - Amniotic Fluid Description Amniotic Fluid Description: positive: Clear - Episiotomy Type Episiotomy Type: positive: None - Laceration Laceration: positive: None - Delivery Outcome Delivery Outcome: positive: Livebirth - [place] : positive: Placed in direct skin contact with mother, Bulb syringe, Stimulated, Warmed sex: positive: Female - Cord Cord: positive: 3 vessels - Placenta Placenta: positive: Intact, Spontaneous - Estimated Blood Loss Estimated Blood Loss (in cc): 200 - Post Delivery Events Post Delivery Events: positive: Shoulder dystocia (George, suprapubic pressure and posterior arm delivery maneuvers placed) - Delivery Comments (Free Text/Narrative) Delivery Comments (Free Text/Narrative): 10/100/0 and patient feeling pressure. Head delivered. Body not delivered with gentle traction, so manuevers started. Shoulder dystocia encountered. RN assistance in the room. [place], suprapubic pressure and then left posterior arm was delivered. Time from head to body about 150 seconds. After delivery of posterior arm, body delivered atraumatically. Baby vigorous and placed on mother's abdomen. Apgars 8/9. Delayed cord clamping. Fundus firm. Placenta delivered spontaneously and intact, 3vc. Vagina and perineum inspected- no lacerations. Mother, baby and father of baby doing well and bonding at bedside. Bus System Operator at bedside. EBL 200cc.
[2022-09-26] MEDS: ACETAMINOPHEN 500 MG TABLET PO SCH (21:02)
[2022-09-26] MEDS: IBUPROFEN 800 MG TABLET PO SCH (21:03)
[2022-09-27] MEDS: IBUPROFEN 800 MG TABLET PO SCH ×4 (02:51→20:21)
[2022-09-27] MEDS: ACETAMINOPHEN 500 MG TABLET PO SCH ×3 (05:06→20:20)
[2022-09-27] MEDS: FERROUS SULFATE 325 MG TABLET PO SCH ×2 (07:58→17:35)
[2022-09-27] MEDS: DOCUSATE SODIUM 100 MG CAPSULE PO SCH ×2 (07:58→20:21)
[2022-09-27] MEDS: SERTRALINE 50 MG TABLET PO SCH (09:10)
--- NOTE | 2022-09-27 09:24 | PROVIDER PROGRESS NOTE ---
Subjective - Prog Note Date Prog Note Date: 09/27/22 Prog Note Time: 09:00 - Subjective Pt reports feeling: Improved Subjective: Comfortable. Appropriate lochia. Ambulating, up to shower. Voiding. Tolerating regular diet. Pumping and formula feeding. Mood is good. Reviewed shoulder dystocia at delivery, all questions answered. Baby Nabeel doing well. Objective - Vital Signs/Intake & Output Vital Signs: Vital Signs x48h Temp Pulse Resp BP Pulse Ox 09/27/22 07:50 98.2 F 80 16 123/83 H 100 09/27/22 05:10 97.9 F 76 18 113/77 100 Intake & Output: Intake & Output 09/24/22 09/25/22 09/26/22 09/27/22 23:59 23:59 23:59 23:59 Intake Total 2377.784 Output Total 1150 Balance 1227.784 - Objective General Appearance: positive: No acute distress Eyes Bilateral: positive: EOMI Respiratory: positive: No respiratory distress Abdomen: positive: Other (Fundus firm) Extremities: positive: Non-tender Neurologic/Psychiatric: positive: Oriented x3 - Lab Results Fish Bones: 09/26/22 07:30 Other Labs: Lab Results x24hrs 09/26/22 09/26/22 Range/Units 09:28 07:30 Blood Type A POSITIVE Blood Type Recheck A POSITIVE Antibody Screen NEGATIVE Assessment/Plan - Problem List (1) Gestational diabetes, diet controlled Impression: 27yo s/p 09/26 following IOL for GDMA1, tachycardia. Doing well. Qualifiers: Trimester: third trimester Qualified Code(s): O24.410 - Gestational diabetes mellitus in , diet controlled (2) Tachycardia Impression: Continue propanolol. Follow up with cardiology . (3) Mental disorder during Impression: Continue sertraline 50mg qd. Currently mood controlled. Early follow up for PPD. (4) Anemia complicating Impression: Ferrous sulfate BID (5) Single live Impression: Routine care. Anticipate discharge tomorrow (6) Shoulder dystocia during labor and delivery, delivered Impression: Discussed with patient. Advise provider prenatally if in the future. (7) 39 weeks gestation of Impression: 3641g, Apgars 8/9
[2022-09-28] MEDS: IBUPROFEN 800 MG TABLET PO SCH ×2 (03:07→09:15)
[2022-09-28] MEDS: ACETAMINOPHEN 500 MG TABLET PO SCH (05:21)
[2022-09-28] MEDS: SERTRALINE 50 MG TABLET PO SCH (08:15)
[2022-09-28] MEDS: DOCUSATE SODIUM 100 MG CAPSULE PO SCH (08:16)
[2022-09-28] MEDS: FERROUS SULFATE 325 MG TABLET PO SCH (08:18)
[2022-09-28 08:23] VITALS: BP 119/69
--- NOTE | 2022-09-28 10:51 | Discharge Plan ---
Discharge Plan Problem Reviewed?: Yes Disposition: Home, Self Care Condition: Good Diet: Regular Activity Restrictions: Additional Comments Shower Restrictions: No Driving Restrictions: No Weight Bearing: Full Weight Instruction Topics: Vaginal After No Smoking: If you smoke, Please STOP! Call for help. Follow-up with: Yossi Dickey MD [Provider Admit Priv/Credential] -
--- NOTE | 2022-09-28 10:57 | DISCHARGE SUMMARY ---
Discharge Summary Admit Date: 09/26/22 Discharge Date: 09/28/22 Discharging Provider: Yossi Dickey MD Code Status: Attempt Resuscitation Condition at Discharge: Good Discharge Disposition: 01 Home, Self Care - DIAGNOSES Admission Diagnoses: 39 weeks gestation Induction of labor Paroxysmal tachycardia Discharge Diagnoses with Status of Each Condition: 39 weeks gestation: Delivered Induction of labor: Delivered Paroxysmal tachycardia: Stable Status post spontaneous vaginal delivery of live browning - HPI History of Present Illness: Subjective Patient reports she is doing well. Lochia appropriate. Denies heavy bleeding. Ambulating. Pelvic and abdominal pain well-controlled. Tolerating oral intake. Diet: Regular. Voiding without difficulty. Passing flatus. Denies BM. Patient is bonding with baby in room Denies feeling lightheaded, dizzy or excessively fatigued. Objective General: Alert, oriented, no apparent distress. Cardiovascular: Regular rate. Regular rhythm. Lungs: No increased work of breathing. Abdomen: Uterus firm. Below umbilicus. No guarding or rebound. Extremities: No pain on palpation. No cords palpated. Distal pulses intact. - HOSPITAL COURSE Hospital Course: Patient was admitted at 39 weeks for induction of labor. She had an uncomplicated labor, and rupture membranes showed clear fluid. She did have a 2-minute shoulder dystocia that resolved with suprapubic pressure and George position then delivery of the posterior arm. course was uneventful. She was discharged on day 2. - ALLERGIES Allergies/Adverse Reactions: Allergies Allergy/AdvReac Type Severity Reaction Status Date / Time melon Allergy Severe Anaphylaxis Verified 09/09/22 14:05 pineapple Allergy Severe Unknown Verified 09/09/22 14:05 - MEDICATIONS Home Medications: Ambulatory Orders Medication Instructions Recorded Confirmed Propranolol [Inderal] 10 mg PO BID 08/22/22 09/09/22 Sertraline HCl 100 mg PO DAILY 08/22/22 09/09/22 Ferrous Sulfate 325 mg PO BID #60 tab 09/28/22 - LABS Result Diagrams: 09/26/22 07:30 - FOLLOW UP Follow Up: With Yossi Dickey at [facility] in 1 week - TIME SPENT Time Spent in Discharge (Minutes): 20
--- NOTE | 2022-09-28 12:32 | Labor Flowsheet ---
Labor Flowsheet Datetime Report Generated by CPN: 09/28/2022 12:31 Datetime: 09/28/2022 08:21 VITAL SIGNS NBP Sys/Luanne/Mean (mmHg): 119 : 69 : 81 Pulse: 82 Datetime: 09/27/2022 05:09 SpO2 (%): 100 Datetime: 09/26/2022 20:46 Stage of : Datetime: 09/26/2022 20:45 Respirations: 22 PAIN Pain Scale: 4 Pain Presence: Intermittent Pain Type: Cramping Pain Location: Other Datetime: 09/26/2022 20:30 Pain Goal: 2 Datetime: 09/26/2022 19:00 Temperature (C): 37.1 Temperature Route: Oral Datetime: 09/26/2022 18:48 MEDICATIONS Pitocin (milliunits): Increased to @ bolus Medication Comments: PP bolus Datetime: 09/26/2022 18:43 Comments: Suprapubic pressure Datetime: 09/26/2022 18:42 Stage 2 Comments: George Datetime: 09/26/2022 18:40 Decelerations: Variable Pushing Progress: Perineal Bulging Datetime: 09/26/2022 18:38 LaborFlag: Labor Datetime: 09/26/2022 18:35 FHR Baseline Rate : 130 Datetime: 09/26/2022 18:30 UTERINE ACTIVITY Monitor Mode: Palpation Frequency (min): 2-4 Quality: Strong Duration (sec): 60-90 Pattern: Normal: <= 5 Contractions in 10 Minutes Resting Tone (Palpate): Relaxed ASSESSMENT A Monitor Mode: External US Variability: Moderate 6-25 bpm Accelerations: 15X15 Actions for Decelerations: Sterile Vaginal Exam; Blood Pressure; Provider Notified Category: Category II I/O Interventions: [place] Discontinued STAGE 2 Pushing: Coached on Pushing; Urge to Push Pushing Position: Pushing with Contractions; Pushing Lithotomy Datetime: 09/26/2022 18:22 VAGINAL EXAM Dilatation (cm): 10.0 Effacement (%): 100 Station: 0 Exam by: Ramona Brower RN Vaginal Exam Comments: MD notified Datetime: 09/26/2022 18:18 Provider Reviewed Strip: Yes Provider Notified (Name): Dr. Anton Datetime: 09/26/2022 17:30 Pitocin Checklist: At Least 1 Acceleration of 15 bpm x 15 Seconds in 30 Minutes or Adequate Variabi lity; No More than 1 Late Deceleration Occurred in Past 30 Minutes; No More than 2 Variable Decelerat ions > 60 Seconds in Duration and decreasing >60 bpm in 30 minutes; No More than 5 Uterine Contractio ns in 10 Minutes for any 20 Minute Interval; Uterus Palpates Soft between Contractions Datetime: 09/26/2022 17:13 Vaginal Bleeding: Normal Show Datetime: 09/26/2022 17:10 COMMUNICATION Communication: Provider at Bedside Datetime: 09/26/2022 16:10 Anesthesia Level Check: T10- Umbilicus Anesthesia Comments: Sun Garcia RETAIL SALES ASSISTANT at bedside. Provider discussed symptoms with patient and changed dose settings. RN will continue to monitor and assess. Datetime: 09/26/2022 15:59 Communication Comments: Notified of continued intermittant tachycardia. Patient requesting her dos e of propanalol. MD will order. Datetime: 09/26/2022 15:09 Monitor Interventions for FHR: Ultrasound Adjusted Datetime: 09/26/2022 14:55 Patient Position/Activity: Left Tilt; Semi-Fowlers Datetime: 09/26/2022 14:39 Membrane Status: Ruptured Membranes Rupture Method: Artificial Amniotic Fluid Color: Clear Amniotic Fluid Amount: Copious Amniotic Fluid Odor: None Datetime: 09/26/2022 14:31 PATIENT CARE IV/Blood Work: New IV Bag Hung Datetime: 09/26/2022 14:17 Epidural Procedure: Loading Dose Epidural Procedure Other: Pump Started Datetime: 09/26/2022 13:52 PROCEDURE TIME OUT Procedure Verify: Correct Patient Identity; Correct Side and Site are Marked; Accurate Procedure Co nsent Form; Agreement on Procedure to be Done; Correct Patient Position; Safety Precautions Based on Patient History or Medication Use ANESTHESIA Anesthesia Plans: Epidural Epidural Positioning: Sitting Datetime: 09/26/2022 13:46 Patient Care Comments: edge of bed for epidural Datetime: 09/26/2022 13:30 Pain Coping: Requesting Pain Medication or Epidural Pain Assessment Comments: Contacted [facility] RETAIL SALES ASSISTANT for patient epidural request. Datetime: 09/26/2022 11:50 Cervix, Position: Posterior Strip Reviewed by: Dr. Anton Notification Reason: Labor Status; Uterine Activity; Pain Datetime: 09/26/2022 10:51 Monitor Interventions for UA: [place] Adjusted
== END 2022-09-28 11:30 | disposition home or self-care (01) | DRG 805 ==
LOC: WFO 07:03 → FBP 07:06 → WFO 08:35 → FBP 08:36
PROVIDERS: ADMIT Obstetrics & Gynecology; ATTEND Obstetrics & Gynecology
PROC: 10E0XZZ Delivery of Products of Conception, External Approach (ICD-10-PCS; principal; 2022-09-26)
PROC: 3E033VJ Introduction of Other Hormone into Peripheral Vein, Percutaneous Approach (ICD-10-PCS; 2022-09-26)
DX: O24.420 Gestational diabetes mellitus in childbirth, diet controlled (principal); O99.42 Diseases of the circulatory system complicating childbirth; Z37.0 Single live birth; O99.02 Anemia complicating childbirth; O99.344 Other mental disorders complicating childbirth; O66.0 Obstructed labor due to shoulder dystocia; I47.9 Paroxysmal tachycardia, unspecified; F41.8 Other specified anxiety disorders; Z3A.39 39 weeks gestation of pregnancy
CPT/HCPCS: 85025; 86850; 86900; 86901; A9270; J7120

== ENCOUNTER 2022-09-26 10:30 | Outpatient (CLI) | payer MEDICAID | END 2022-09-26 10:31 | disposition home or self-care (01) | LOC: MAC.MOP 10:30 | PROVIDERS: ATTEND Obstetrics & Gynecology | DX: O09.93 Supervision of high risk pregnancy, unspecified, third trimester (principal); O99.413 Diseases of the circulatory system complicating pregnancy, third trimester; R00.0 Tachycardia, unspecified; I49.49 Other premature depolarization; I49.1 Atrial premature depolarization; I49.3 Ventricular premature depolarization; Z3A.00 Weeks of gestation of pregnancy not specified | CPT/HCPCS: 93244 ==

== ENCOUNTER 2023-05-30 10:12 | Emergency (ER) | payer MEDICAID ==
--- NOTE | 2023-05-30 11:21 | XRAY Report ---
PROCEDURE: Wrist 3 View RT INDICATIONS: pain after panic attack TECHNIQUE: 3 views of the wrist were acquired. COMPARISON: None. FINDINGS: Bones: No fractures or dislocations. No suspicious bony lesions. Soft tissues: No suspicious soft tissue calcifications or masses. IMPRESSION: No acute bony abnormality. Reviewed by: Juan C Serrano MD on 05/30/2023 10:20 AM [facility] Approved by: Juan C Serrano MD on 05/30/2023 10:20 AM [facility] Station ID: [id number]
--- NOTE | 2023-05-30 11:23 | ED Physician Documentation ---
History of Present Illness - Stated complaint Stated Complaint: RT WRIST PX - Chief complaint Chief Complaint: Ext Problem - Additonal information Additional information: 27-year-old female presents emergency department for evaluation of 2 days right wrist pain. Reports a longstanding history of PTSD and she had a episode of PTSD 2 nights ago. She does not remember the event. However the next morning when she woke up she found that her whole body was sore especially her wrist. She states that she has difficulty lifting anything more than 2 pounds. There is no swelling obvious ecchymosis. The other areas of tenderness on her body have resolved with the exception of the wrist. Patient is right-hand dominant Review of Systems Musculoskeletal: reports: Joint pain PD PAST MEDICAL HISTORY - Past Medical History Cardiovascular: None Respiratory: None Endocrine/Autoimmune: None GI: None - Past Surgical History Past Surgical History: No - Present Medications Home Medications: Ambulatory Orders Medication Instructions Recorded Confirmed Propranolol [Inderal] 10 mg PO BID 08/22/22 09/09/22 Sertraline HCl 100 mg PO DAILY 08/22/22 09/09/22 Ferrous Sulfate 325 mg PO BID #60 tab 09/28/22 - Allergies Allergies/Adverse Reactions: Allergies Allergy/AdvReac Type Severity Reaction Status Date / Time melon Allergy Severe Anaphylaxis Verified 09/09/22 14:05 pineapple Allergy Severe Unknown Verified 09/09/22 14:05 - Social History Does the pt smoke?: No Smoking Status: Never smoker Does the pt drink ETOH?: No Does the pt have substance abuse?: No - Immunizations Immunizations are current?: Yes - POLST Patient has POLST: No PD ED PE EXPANDED - Extremities Extremities: Right wrist (No swelling or ecchymosis. Normal flexion extension. No anatomic snuffbox tenderness. Weak grasp. Tenderness is elicited on the volar aspect of the wrist ulnar side.) Results - Vitals Vitals: Vital Signs - 24 hr 05/30/23 10:17 Temperature 36.6 C Heart Rate 99 Respiratory 18 Rate Blood Pressure 129/93 H O2 Saturation 100 Oxygen O2 Source Room air - Rads (name of study) right wrist xr Relevant Findings:: Final report received (No acute bony abnormality) PD Medical Decision Making - ED course Complexity details: reviewed results, d/w patient ED course: Acute right wrist pain after a PTSD episode 2 nights ago without any known trauma. The exam of the wrist shows no findings to suggest trauma such as swelling or ecchymosis. She has normal flexion extension of the wrist normal grasp though weaker than 1 would expect. Most of the tenderness is on the volar aspect of the wrist ulnar side. No anatomic snuffbox tenderness. X-rays interpreted by the radiologist negative for acute fracture or dislocation. no e/o infection or cellulitis. I suspect that she may have a hand sprain or a tendinitis after her episode as she reports that her entire body was sore. She is suspect she may have been clenching her fist. Patient is placed in a Velcro wrist splint. Advised Tylenol and Motrin. Follow close with PCP. The usual emergent return precautions worsening symptoms was discussed. Departure - Departure Disposition: 01 Home, Self Care Clinical Impression: Sprain of right wrist Qualifiers: Encounter type: initial encounter Qualified Code(s): S63.501A - Unspecified sprain of right wrist, initial encounter Condition: Stable Instructions: ED Sprain Wrist Comments: As discussed at the bedside the x-ray of your wrist is normal. There is nothing to suggest any broken bones. There is nothing to suggest you have an infection in the skin or wrist joint. I suspect that after your episode 2 nights ago you may have sprained your wrist. Please wear the wrist splint for the next several days. I recommend you take Tylenol 500 mg 3 times a day or alternate with ibuprofen 600 mg taken with food 2-3 times a day ice to the wrist can also be helpful. If not markedly better after 7 to 10 days follow close with your primary care doctor. Repeat imaging may be indicated at that time versus referral to physical therapy or even orthopedics. Return to the ER if you have any concerns of infection. Forms: PCP List
[2023-05-30 11:43] VITALS: BP 116/85
== END 2023-05-30 11:36 | disposition home or self-care (01) ==
LOC: ED 10:12
DX: S63.501A Unspecified sprain of right wrist, initial encounter (principal); X58.XXXA Exposure to other specified factors, initial encounter; F43.10 Post-traumatic stress disorder, unspecified
CPT/HCPCS: 99283

== ENCOUNTER 2023-12-27 15:23 | Emergency (ER) | payer MEDICAID ==
[2023-12-27 15:49] VITALS: BP 142/86
--- NOTE | 2023-12-27 16:09 | ED Physician Documentation ---
PD HPI HEADACHE - Stated complaint Stated Complaint: MIGRAINE/DIZZY/NAUSEA - Chief complaint Chief Complaint: Neuro - History obtained from History obtained from: Patient - Additional information Additional information: 28-year-old woman with history of infrequent migraines developed a gradual onset headache 2 days ago that got better and then got worse again. She has not tried anything at home for it. She is light sensitive, sound sensitive, and seeing black spots in both eyes. Denies fevers or neck stiffness. She is on her menses. PD PAST MEDICAL HISTORY - Past Medical History Past Medical History: Yes Cardiovascular: None Respiratory: None Neuro: Migraines Endocrine/Autoimmune: None GI: None - Past Surgical History Past Surgical History: Yes - Present Medications Home Medications: Ambulatory Orders Medication Instructions Recorded Confirmed No Known Home Medications 12/27/23 12/27/23 - Allergies Allergies/Adverse Reactions: Allergies Allergy/AdvReac Type Severity Reaction Status Date / Time melon Allergy Severe Anaphylaxis Verified 12/27/23 15:32 pineapple Allergy Severe Unknown Verified 12/27/23 15:32 - Social History Does the pt smoke?: No Smoking Status: Never smoker Does the pt drink ETOH?: No Does the pt have substance abuse?: No - Immunizations Immunizations are current?: Yes - POLST Patient has POLST: No PD ED PE NORMAL - Vitals Vital signs reviewed: Yes - General General: Alert and oriented X 3, No acute distress - HEENT HEENT: PERRL, EOMI - Neck Neck: Supple, no meningeal sign, No bony TTP - Neuro Neuro: Alert and oriented X 3, software tools build engineer 2-12 intact, No motor deficit, No sensory deficit, Normal speech Eye Opening: Spontaneous Motor: Obeys Commands Verbal: Oriented GCS Score: 15 Results - Vitals Vitals: Vital Signs - 24 hr 12/27/23 12/27/23 12/27/23 15:29 15:32 17:26 Temperature 36.5 C Heart Rate 84 78 71 Respiratory 18 15 16 Rate Blood Pressure 142/86 H O2 Saturation 100 98 100 Oxygen O2 Source Room air PD Medical Decision Making - ED course ED course: The headache is gradual in onset and similar to prior headaches. As such I doubt subarachnoid hemorrhage. There are no infectious symptoms such as fever or stiff neck to make me suspect meningitis. No carbon monoxide exposure by history. Initially she got some IV Benadryl and Reglan with modest relief of her pain. This was followed by Imitrex and ketorolac with very good relief. Departure - Departure Disposition: 01 Home, Self Care Clinical Impression: Migraine Condition: Good Assessment: You are seen today for apparent migraine headache. The initial meds he received were metoclopramide, Benadryl, and saline. You had some improvement with this and was followed by ketorolac in your IV and subcutaneous sumatriptan which gave you good relief. Call your doctor to arrange a follow-up appointment, make the next available appointment. In the interim, return anytime if worse or if new symptoms develop. Instructions: ED Headache Migraine Forms: PCP List Discharge Date/Time: 12/27/23 17:30
[2023-12-27] MEDS: diphenhydrAMINE INJ 50 MG/ML VIAL IVP STA (16:14)
[2023-12-27] MEDS: METOCLOPRAMIDE 10 MG/2 ML VIAL IVP STA (16:14)
[2023-12-27] MEDS: SODIUM CHLORIDE 0.9% 1,000 ML IV STA (16:14)
[2023-12-27] MEDS: KETOROLAC 15 MG/ML VIAL IVP STA (16:48)
[2023-12-27] MEDS: SUMAtriptan 6 MG/0.5 ML VIAL SUBQ STA (16:48)
[2023-12-27 17:33] VITALS: O2SAT 100
== END 2023-12-27 17:30 | disposition home or self-care (01) ==
LOC: ED 15:23
DX: G43.909 Migraine, unspecified, not intractable, without status migrainosus (principal)
CPT/HCPCS: 96372; 96374; 99283; J1200; J2765

== ENCOUNTER 2024-05-30 08:36 | Emergency (ER) | payer MEDICAID ==
[2024-05-30 09:05] VITALS: O2SAT 100
--- NOTE | 2024-05-30 09:30 | ED Physician Documentation ---
History of Present Illness - Stated complaint Stated Complaint: ,NAUSEA - Chief complaint Chief Complaint: General - History obtained from History obtained from: Patient - Additonal information Additional information: Patient is a 28-year-old female who presents to the emergency department stating that for the past 1 week she has had vaginal discharge, she states it is off- white in color. States it has become more painful. She states that she has sores on her labia as well. States that she has not had any changes in sexual partners. Denies any STD exposure. Nothing makes it better or worse. No fevers. No chills. No abdominal pain or back pain. She states she does not believe she is . Review of Systems Constitutional: denies: Fever GI: denies: Vomiting, Diarrhea Musculoskeletal: denies: Neck pain, Back pain Neurologic: denies: Headache PD PAST MEDICAL HISTORY - Past Medical History Cardiovascular: None Respiratory: None Neuro: Migraines Endocrine/Autoimmune: None GI: None - Past Surgical History Past Surgical History: No - Present Medications Home Medications: Ambulatory Orders Medication Instructions Recorded Confirmed HYDROcod/ACETAM 5/325 [Cabot 5/325] 1 - 2 ea PO Q6H PRN #14 tablet 05/30/24 Valacyclovir HCl [Valtrex] 1,000 mg PO BID #20 tablet 05/30/24 - Allergies Allergies/Adverse Reactions: Allergies Allergy/AdvReac Type Severity Reaction Status Date / Time melon Allergy Severe Anaphylaxis Verified 05/30/24 09:02 pineapple Allergy Severe Unknown Verified 05/30/24 09:02 - Social History Does the pt smoke?: No Smoking Status: Never smoker Does the pt drink ETOH?: No Does the pt have substance abuse?: No - Immunizations Immunizations are current?: Yes - POLST Patient has POLST: No PD ED PE NORMAL - Vitals Vital signs reviewed: Yes - General General: Alert and oriented X 3, No acute distress - HEENT HEENT: Moist mucous membranes - Cardiac Cardiac: RRR - Respiratory Respiratory: No respiratory distress, Clear bilaterally - Abdomen Abdomen: Soft, Non tender, Non distended - Female 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 There are several small sores on the right labia, ulcerated. There is also an ulcerated lesion on the cervix.) - Derm Derm: Warm and dry - Neuro Neuro: Alert and oriented X 3 - Psych Psych: Normal mood, Normal affect Results - Vitals Vitals: Vital Signs - 24 hr 05/30/24 05/30/24 08:55 10:30 Temperature 35.8 C L 36 C L Heart Rate 98 87 Respiratory 16 18 Rate Blood Pressure 110/70 115/87 H O2 Saturation 100 100 Oxygen O2 Source Room air - Labs Labs: Laboratory Tests 05/30/24 09:39 Urine Color DARK YELLOW Urine Clarity CLEAR Urine pH 8.5 H Ur Specific [place] 1.020 Urine Protein NEGATIVE Urine Glucose (UA) NEGATIVE Urine Ketones NEGATIVE Urine Occult Blood NEGATIVE Urine Nitrite NEGATIVE Urine Bilirubin NEGATIVE Urine Urobilinogen 0.2 (NORMAL) Ur Leukocyte Esterase NEGATIVE Ur Microscopic Review NOT INDICATED Urine Culture Comments NOT INDICATED Urine HCG, Qual NEGATIVE PD Medical Decision Making - ED course Complexity details: reviewed results, re-evaluated patient, considered differential, d/w patient ED course: Patient with an exam consistent with herpes is genitalis, will place on Valtrex for home. Bacterial vaginitis swabs, chlamydia, gonorrhea swabs were sent. HSV swab sent as well. These are pending at the time of discharge, these will be followed up and the patient will be contacted if they are positive. Will prescribe pain medication for home as well. Patient counseled regarding signs and symptoms for which I believe and urgent re-evaluation would be necessary. Patient with good understanding of and agreement to plan and is comfortable going home at this time This document was made in part using voice recognition software. While efforts are made to proofread this document, sound alike and grammatical errors may occur. Departure - Departure Disposition: 01 Home, Self Care Clinical Impression: Vaginal discharge Condition: Good Instructions: ED Herpes Simplex Virus Type 2 Follow-Up: your,doctor in 1 week [Other] Prescriptions: HYDROcod/ACETAM 5/325 [Cabot 5/325] 1 - 2 ea PO Q6H PRN #14 tablet PRN Reason: Pain Valacyclovir HCl [Valtrex] 1,000 mg PO BID #20 tablet Comments: As we discussed your swabs will be back later today, I will contact you with the results. The herpes swab may take a day or 2 to come back. You can also check your results on the patient portal at the [employer] website. Your physical exam is concerning for herpes, therefore we will start you on Valtrex to see if this heals the sores quickly. Your prescription was sent to [facility] in [place]. I am prescribing a short course of narcotic pain medication for you. These are potentially dangerous and addictive medications that should be used carefully. These medications may constipate you. Take an xqdh-hzp-preqajt stool softener (docusate) twice daily with plenty of water while taking these medications. If you go 24 hours without a bowel movement, take [id number] miralax, per package instructions. Do not drink or drive while taking these medications. If you received narcotic or sedating medications while in the emergency department, do not drive for 24 hours. Store this medication in a safe, secure place and out of reach of children. It is a violation of federal law to give or sell this medication to another person or to use in a manner other than prescribed. The ED will not refill narcotic prescriptions, including prescriptions lost or stolen. To dispose of unwanted medications: 1. [facility] [address] in [place] has a medication drop box. They accept prescription medications (in pill form) Monday through Monday 9:00 a.m. to 5:00 p.m. 2. The [facility] [employer] accepts prescription medications (in pill form only) for disposal year round. Call for more information. 3. Contact the [facility] for the next [facility] sponsored prescription drug collection event. , [phone], or [phone]; Forms: PCP List Discharge Date/Time: 05/30/24 10:38
[2024-05-30 09:59] LABS: BILIRUBIN,URINE NEGATIVE (NEGATIVE); GLUCOSE, URINE (UA) NEGATIVE (NEGATIVE); KETONES,URINE (UA) NEGATIVE (NEGATIVE); LEUKOCYTE ESTERASE, URINE NEGATIVE (NEGATIVE); NITRITE,URINE NEGATIVE (NEGATIVE); OCCULT BLOOD,URINE NEGATIVE (NEGATIVE); PH,URINE 8.5 PH (5.0-7.5); PROTEIN,URINE NEGATIVE (NEGATIVE); UROBILINOGEN,URINE 0.2 (NORMAL) E.U./dL (NORMAL)
[2024-05-30 10:01] LABS: CLARITY,URINE CLEAR (CLEAR)
[2024-05-30 10:02] LABS: HCG UR QUAL NEGATIVE
[2024-05-30] MEDS: cefTRIAXone 1 GM VIAL IM STA (10:23)
[2024-05-30] MEDS: LIDOCAINE 1% 2 ML VIAL MC ONE (10:23)
[2024-05-30 10:36] VITALS: BP 115/87
[2024-05-30 15:06] LABS: CHLAMYDIA TRACHOMATIS DNA NEGATIVE (NEGATIVE); NEISSERIA GONORRHOEAE DNA NEGATIVE (NEGATIVE); TRICHOMONAS VAGINALIS DNA NEGATIVE (NEGATIVE)
--- NOTE | 2024-05-30 16:37 | ED Physician Documentation ---
ED Addendum - Addendum Addendum: 05/30/24 16:36 I was asked by Dr. Strange to keep an eye out for the swabs subsequent to her discharge. The chlamydia/gonorrhea/trichomonas swab was negative. The BV swab could not be run there is some sort of lab error. I called the patient and given her symptomatology and significant pain as well as after review of Dr. Strange's note, presume herpes is more likely but offered to have her return for reswabbing and at this point it sounds like she plans to wait out for the herpes swab as she has had BV and Gloria in the past and this feels nothing like that.
[2024-06-01 07:09] LABS: HSV-1 DNA Positive (Negative); HSV-2 DNA Negative (Negative)
== END 2024-05-30 10:38 | disposition home or self-care (01) ==
LOC: ED 08:36
DX: N89.8 Other specified noninflammatory disorders of vagina (principal)
CPT/HCPCS: 81001; 81003; 81025; 81514; 87086; 87491; 87529; 87591; 87661; 96374; 99283